=== PATIENT | female | born 1965 | race Caucasian/White ===

== ENCOUNTER 2024-10-01 07:01 | Outpatient (REF) | payer OTHER, SELFPAY ==
--- NOTE | ~2024-10-01 | US_ITS ---
EXAMINATION: US EXTRACRANIAL CAROTID DUPLEX, BILATERAL CLINICAL INFORMATION: Stenosis. Carotid bruit COMPARISON: None available. TECHNIQUE: Real-time ultrasound and Doppler techniques (integrating B-mode 2-D vascular images, Doppler spectral analysis and color-flow Doppler imaging) were utilized to interrogate the extracranial carotid arteries, the vertebral arteries and proximal subclavian arteries bilaterally. The degree of stenosis is determined by criteria similar to NASCET. FINDINGS: Right Side: 1. There is soft atherosclerotic plaque seen in the bifurcation/proximal ICA region. 2. The common carotid artery PSV proximally is 82.7 cm/s and distally 85.6 cm/s. 3. The proximal internal carotid artery velocities are 110.0 cm/s systolic and 39.3 cm/s diastolic. 4. The proximal external carotid artery PSV is 85.6 cm/s. 5. The vertebral artery shows 68.6 flow. 6. The subclavian artery waveforms are normal. Left Side: 1. There is soft atherosclerotic plaque seen in the bifurcation/proximal ICA region. 2. The common carotid artery PSV proximally is 72.1 cm/s and distally 119.0 cm/s. 3. The proximal internal carotid artery velocities are 132.0 cm/s systolic and 47.1 cm/s diastolic. 4. The proximal external carotid artery PSV is 118.0 cm/s. 5. The vertebral artery shows 35.8 flow. 6. The subclavian artery waveforms are normal. US/US carotid duplex BI IMPRESSION: 1. RIGHT: 0-49% range stenosis right carotid. 2. LEFT: 50-79% range stenosis left carotid. 3. Normal antegrade flow seen in both vertebral arteries. Electronically signed by: Aurelio Braswell MD 10/01/2024 04:33 PM EDT
--- NOTE | ~2024-10-01 | US_ITS ---
EXAMINATION: US THYROID CLINICAL INFORMATION: Nontoxic single thyroid nodule. COMPARISON: None available. TECHNIQUE: Linear transducer grayscale and color Doppler examination with attention to the region of the thyroid. FINDINGS: SIZE: Measurements of the thyroid lobes and nodules are given in sagittal, anteroposterior and transverse dimensions respectively. Right Thyroid Lobe: 6.2 x 2.7 x 2.2 cm, volume 19.3 mL. Enlarged. Parenchyma: The gland echotexture is heterogeneous. Thyroid vascularity is normal. Left Thyroid Lobe: 4.4 x 2.0 x 2.1 cm, volume 9.9 mL. Parenchyma: The gland echotexture is heterogeneous. Thyroid vascularity is normal. Isthmus: 1.2 cm in maximum AP dimension. Estimated total number of nodules greater than or equal to 1 cm: 3. [employer] nodules are described as follows: 1. Location: Right mid to upper pole. Size: 1.0 x 0.8 x 0.8 cm, volume 0.32 mL. Nodule characteristics: Composition: Solid (2). Echogenicity: Isoechoic (1). Shape: Not taller than wide (0). Margins: Smooth (0). Echogenic Foci: None (0). ACR TI-RADS total points: 3 ACR TI-RADS category: 3 2. Location: Right mid pole. Size: 2.1 x 1.5 x 1.5 cm, volume 2.4 mL. Nodule characteristics: Composition: Solid (2). Echogenicity: Hypoechoic (2). Shape: Taller than wide (3). Margins: Smooth (0). Echogenic Foci: None (0). ACR TI-RADS total points: 7 ACR TI-RADS category: 5 3. Location: Left upper pole. Size: 1.3 x 0.7 x 1.0 cm, volume 0.5 mL. Nodule characteristics: Composition: Spongiform (0). ACR TI-RADS category: 1 4. Location: Left lower pole. Size: 0.9 x 0.7 x 0.7 cm, volume 0.26 mL. Nodule characteristics: Composition: Solid/almost completely solid (2). Echogenicity: Hyperechoic (1). Shape: Not taller than wide (0). Margins: Smooth (0). Echogenic Foci: None (0). ACR TI-RADS total points: 3 ACR TI-RADS category: 3 5. Location: Thyroid isthmus. Size: 1.1 x 0.6 x 0.9 cm, volume 0.29 mL. Nodule characteristics: Composition: Solid (2). Echogenicity: Hyperechoic (1). Shape: Not taller than wide (0). Margins: Smooth (0). Echogenic Foci: None (0). ACR TI-RADS total points: 3 ACR TI-RADS category: 3 NODES: No lymphadenopathy is seen in the tissue surrounding the thyroid gland. US/US thyroid IMPRESSION: 1. There is a 1.0 TR category 3 nodule in the right mid to upper pole. No follow-up recommended. 2. There is a 2.1 cm TR category 5 nodule in the right midpole. FNA recommended. 3. There is a 1.3 cm TR category 1 nodule in the left upper pole. No follow-up recommended. 4. There is a 1.1 TR category 3 nodule in the isthmus. No follow-up recommended. 5. This is 0.9 TR category 3 nodule in the left lower pole, no follow-up recommended. 6. Surrounding thyroid parenchyma is mildly heterogeneous. ACR TI-RADS RECOMMENDATION REFERENCE: Ultrasound-guided fine-needle aspiration, followup ultrasound, no further follow up. * TR1 (0 point) and TR2 (2 points): No FNA or follow up. * TR3 (3 points): FNA if more than or equal to 2.5 cm in maximum dimension, followup ultrasound in 1, 3 and 5 years if 1.5 to 2.4 cm in maximum dimension. * TR4 (4-6 points): FNA if more than or equal to 1.5 cm in maximum dimension, followup ultrasound in 1, 2, 3 and 5 years if 1 to 1.4 cm in maximum dimension. * TR5 (more than or equal to 7 points): FNA if more than or equal to 1 cm in maximum dimension, followup ultrasound every year for 5 years if 0.5 to 0.9 cm in maximum dimension. * TR3, TR4 or TR5 nodules that are below the size threshold for followup receive no follow up. Electronically signed by: John Cintron MD 10/01/2024 04:38 PM EDT
== END 2024-10-01 07:02 | disposition home or self-care (01) ==
LOC: HO.UMASIMG 07:01
PROVIDERS: Visit Provider Nurse Practitioner
DX: E04.1 Nontoxic single thyroid nodule (principal); N76.0 Acute vaginitis; I65.23 Occlusion and stenosis of bilateral carotid arteries; E11.9 Type 2 diabetes mellitus without complications
CPT/HCPCS: 76536; 93880

== ENCOUNTER → 2024-10-01 15:00 | Outpatient (BNV) | payer OTHER, SELFPAY | PROVIDERS: Visit Provider Radiology Diagnostic Radiology | DX: I65.23 Occlusion and stenosis of bilateral carotid arteries (principal); E04.1 Nontoxic single thyroid nodule | CPT/HCPCS: 76536; 93880 ==